=== PATIENT | female | born 1955 | race Caucasian/White ===

== ENCOUNTER 2016-05-06 09:17 | Day surgery (SDC) | payer BC, OTHER ==
--- NOTE | 2016-05-02 16:07 | HP ---
Chief Complaint - Chief Complaint Date of Service: 05/02/16 Chief Complaint: here for a colonoscopy History of Present Illness: 60 year old female who has not had a colonoscopy for many years. No recent changes and no blood in stools. No weight loss or night sweats. No abdominal pain. - Patient's Past Medical History Patient History - Medical: No pertinent hx Patient History - Cardiac/Respiratory: No pertinent hx Patient History - Cancer: No Hx of Cancer Patient History - Surgical Procedures: D & C - 30 years ago - Family History Family History:: no untoward family reactions to anesthesia, no familial bleeding tendencies, no family history of clotting disorders - Family History Mother Family History - Medical: , Other - MVA Father Family History - Medical: , Other - MVA - Social History Living Situations: spouse Abuse History: No History of abuse Psych History: No pertinent hx Does anyone smoke in the home?: No Smoking Status: Never smoker Alcohol Use: none Drug Use: none - Immunizations Immunizations Up to Date: No Hx Pneumococcal Vaccination: No History of Influenza Vaccine: Yes Review Of Systems (GEN) - Review of Systems Generalized/Overall Review: Absent: Weakness, Chills, Fever, Malaise EENTM: Absent: Eye Pain, Double Vision Respiratory: Absent: Cough, Shortness of Breath, Stridor, Wheezing Cardiac: Absent: Chest Pain, Edema, Palpitations Abdominal: Absent: Nausea, Vomiting, Abdominal Pain, Constipation, Diarrhea, Melena, Bright blood from rectum Genitourinary: Absent: Burning, Urgency, Frequency Musculoskeletal: Absent: Joint Pain Neurological: Absent: Headache Skin: Absent: Dryness, Lumps, Rash Allergies/Adverse Reactions: Allergies Allergy/AdvReac Type Severity Reaction Status Date / Time No Known Allergies Allergy Verified 05/02/16 16:28 Home Medications: HOME MEDICATIONS NK [No Home Medication] 05/02/16 [Last Taken Unknown] Exam - Exam Vital Signs: Ht 5'1 Wt 130#s HR 70 T 36.5C BP 120/78 Constitutional: Present: Alert, Oriented x3, Cooperative, Well developed, Well nourished, No distress, Looks Younger than stated age ENT Exam: Present: normal ENT inspection, hearing grossly normal Eye Exam: bilateral eye: normal inspection Neck: Present: non-tender, full range of motion Breasts: Present: Exam deferred Respiratory: Present: lungs clear, normal breath sounds, no respiratory distress , no accessory muscle use Cardiovascular/Chest: Present: regular rate, rhythm, no edema, no gallop, no murmur Abdomen: Present: Normal bowel sounds, soft, nontender, nondistended, no hepatospenomegaly /Rectal: Present: Exam deferred Extremity: Present: normal range of motion, non-tender, normal inspection Skin Exam: Present: normal color, warm/dry, no cyanosis Appearance: Present: appropriate appearance, appropriate insight, neat, no memory impairment Eye contact: Present: cooperative, good eye contact, normal speech Thoughts: Present: normal thought pattern, no apparent hallucination Assessment/Plan - Narrative Narrative: I discussed the [facility] for a colonoscopy with possible biopsy and or polypectomy. She understands and agrees and wishes to proceed. SUPREP discussed. Handout reviewed and given to patient. Proceed next week. - Assessment/Plan (1) Screening for colon cancer Problem: Acute
[~2016-05-06 09:17] MED LIST: RINGERS SOLUTION,LACTATED 1,000 ML IV PRN
--- OUTSIDE RECORDS SUMMARY | 2016-05-06 09:23 | XMS REPORT | Continuity of Care Document ---
:1955 Author Organization [facility] ([facility]) Address [address] [place] [address] Phone [phone] Care Team Providers Name Role Phone Lilly Malik Primary Care Provider [phone] Source Comments This disclosure is being made pursuant to the Care Everywhere program, applicable federal and state laws, and may not contain all informaitonavailable regarding this patient.[facility] ([facility]) Active Allergies and Adverse Reactions No Known Allergies Current Medications Prescription Sig. Disp. Refills Start Date End Date Status famotidine 10 mg tablet Take 10 mg by mouth Active 2 times daily. aspirin 325 mg tablet Take 325 mg by mouth Active 2 times daily. esomeprazole (NEXIUM) Take 20 mg by mouth Active 20 mg EC capsule every morning before breakfast multivitamin with Take 1 tablet by Active minerals tablet mouth daily. estrogens, conjugated Insert 0.5 g 42.5 g 3 04/08/2016 Active (PREMARIN) 0.625 vaginally 2 times mg/gram vaginal cream weekly. Active Problems Problem Noted Date Uterovaginal prolapse, incomplete 04/08/2016 Urinary incontinence 04/08/2016 Vaginal atrophy 04/08/2016 Myopia 10/27/2011 Astigmatism 10/27/2011 Presbyopia 10/27/2011 Most Recent Encounters Date Type Specialty Providers Description 04/30/2016 Office Visit [facility] Zeenat Cardoza Chief Comp: Anabel Norton MD Reported Reason For Visit 04/30/2016 Office Visit [facility] Zeenat Cardoza Chief Comp: Anabel Norton MD Reported Reason For Visit 04/23/2016 Office Visit [facility] Zeenat Cardoza Chief Comp: Patient MD Cierra Reported Reason For Visit 04/22/2016 Office Visit [facility] Zeenat Cardoza Dx: Vaginal erosion MD Cierra secondary to pessary use, initial encounter (Primary Dx) 04/21/2016 Office Visit [facility] Zeenat Cardoza Chief Comp: Patient MD Cierra Reported Reason For Visit 04/14/2016 Telephone [facility] Zeenat Cardoza Chief Comp: Patient MD Cierra Concern 04/08/2016 Office Visit [facility] Zeenat Cardoza Dx: Uterovaginal MD Cierra prolapse, incomplete (Primary Dx) Social History Tobacco Use Types Packs/Day Years Used Date Never Smoker Smokeless Tobacco: Never Used Alcohol Use Drinks/Week oz/Week Comments Yes Last Filed Vital Signs Vital Sign Reading Time Taken Blood Pressure 131/79 04/22/2016 2:43 PM CDT Pulse 120 04/22/2016 2:43 PM CDT Temperature - - Respiratory Rate - - Height 1.549 m (5' 0.98") 04/08/2016 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 Weight 61.8 kg (136 lb 3.9 oz) 04/08/2016 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 Body Mass Index 25.76 04/08/2016 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 Oxygen Saturation - - Plan of Care Date Type Specialty Providers Description 05/26/2016 Appointment [facility] Zeenat Cardoza, Chief Comp: Patient Reported Reason For [address] [place] [address] [phone] (Fax) Health Maintenance Due Date Last Done Comments HCV Screening 1955 Hepatitis B Vaccine (1 of 3 - Primary Series) 1955 Tdap Vaccine 1968 Lipid Disorder Screening 10/08/1975 MMR Vaccine 10/08/1975 Td Vaccine 10/08/1975 Cervical Cancer Screening 10/08/1987 Mammogram 1997 Colonoscopy 2007 Influenza Vaccine: Seasonal (#1) 09/10/2015 Results from Last 3 Months PESSARY FITTING (04/09/2016 10:26 AM) Narrative Zeenat Cardoza MD 04/09/2016 10:26 AM Procedure Note PESSARY FITTING PROCEDURE: Reviewed with Patient pessary use and management. Advised on fitting procedure for today. Patient agreed to attempt pessary fitting today. I performed the pessary fitting as below: Pessaries attempted: #5 ring (snug fit, fell out with straining) #2 3/4 and #3 Gelhorns -- both reasonable fit but stem too long (sat at introitus); #3 slightly better fit, not too tight, not expelled with activity, voiding #3 Gelhorn with short stem - best fit Pessary fitting: Successful. with: # 3 Gelhorn, short stem pessary (Bioteque) AVS Written Pessary Instructions provided and follow-up appointment scheduled (see clinic note). Verbally reviewed signs/symptoms to call and report. Zeenat Cardoza MD, MSCE/Electronically Signed Professor of Obstetrics and Gynecology Director, Urogynecology [facility] POST-VOID RESIDUAL (BVI), POINT OF CARE (04/08/2016) Component Value Range VOLUME 125 ml POST-VOID RESIDUAL 165 ml URINE DIPSTICK, 10, POINT OF CARE (04/08/2016) Component Value Range POC GLUCOSE Negative mg/dl POC BILIRUBIN Negative Negative-Negative POC KETONES Negative Negative-Negative mg/dl POC SPEC GRAVITY 1.015 1.015-1.025 POC BLOOD Negative Negative-Negative POC PH 6.0 5.0-8.5 POC PROTEIN Negative Negative-Negative mg/dl POC UROBILINOGEN 0.2 0.2-1.0 mg/dl POC NITRITE Negative Negative-Negative POC LEUKOCYTE Negative Negative-Negative
[2016-05-06] MEDS ORDERED: RINGERS SOLUTION,LACTATED 1,000 ML IV ONE (09:58)
[2016-05-06] MEDS ORDERED: RINGERS SOLUTION,LACTATED 1,000 ML IV PRN (12:06)
--- NOTE | 2016-05-06 12:10 | OR ---
Operative Report - Dictated Report Narrative: DATE OF PROCEDURE: 05/06/2016 PREOPERATIVE DIAGNOSIS: #1 Screening colonoscopy POSTOPERATIVE DIAGNOSIS: #1 Screening colonoscopy #2 extensive sigmoid diverticulosis OPERATION: Colonoscopy SURGEON: Guillaume Dubose M.D. [facility] ANESTHESIA : Prashant Simental MANAGER OF SOFTWARE sedation INDICATIONS: This is 60 year old female who presents for a screening colonoscopy. I have discussed the risks, benefits, indications, and contraindications for colonoscopy with the possibility of biopsy and/or polypectomy. She understands, agrees, and wishes to proceed. She has undergone a SUPREP and has tolerated it well. PROCEDURE: The patient was brought to the operating theater and placed into the left lateral decubitus position. The patient underwent sedation per anesthesia , and a digital rectal exam was performed. This was noted to be unremarkable. The patient was noted to have no internal or external hemorrhoids. The Olympus video colonoscope was introduced and advanced into the rectum. The rectum was normal in appearance. The scope was then advanced through the sigmoid, where extensive diverticular disease and a tortuous sigmoid colon was noted. The scope was then advanced to the cecum using standard reduction techniques. The appendiceal orifice was noted. The ileocecal valve was noted. The prep appeared to be excellent with a Pierson prep score of 9. The scope was withdrawn slowly as the ascending, transverse, descending, and sigmoid colon were examined in a circumferential fashion. The scope was brought back into the rectum where the air was decompressed, and the scope was then removed. Withdrawal time was 8 minutes, however entry time was excessively long. POSTOPERATIVE CONDITION: The patient was awakened and taken to the ambulatory surgery center in good condition. No complications were encountered. FINDINGS: Extensive diverticulosis in a tortuous sigmoid colon, no signs of polyps, tumors or inflammatory changes Specimens: None EBL: 0 The findings were discussed with the patient and her . I recommend a follow-up colonoscopy in 10 years for screening purposes. Diverticulosis booklet was reviewed.
[2016-05-06 14:57] VITALS: BP 112/72
== END 2016-05-06 09:18 | disposition home or self-care (01) ==
LOC: AMB 09:17
PROVIDERS: ATTEND Surgery
PROC: 0DJD8ZZ Inspection of Lower Intestinal Tract, Via Natural or Artificial Opening Endoscopic (ICD-10-PCS; principal; 2016-05-06 10:45)
DX: Z12.11 Encounter for screening for malignant neoplasm of colon (principal); K57.30 Diverticulosis of large intestine without perforation or abscess without bleeding; Z68.24 Body mass index [BMI] 24.0-24.9, adult